=== PATIENT | female | born 1930 | race Caucasian/White ===

== ENCOUNTER 2017-05-07 10:13 | Emergency (ER) | payer MEDICARE ==
[~2017-05-07] VITALS: Ht 157.4 cm; Wt 57.6 kg
[~2017-05-07 10:13] MED LIST: DULCOLAX5 M1 PO; INDOCIN25 MG PO; MIRALAX17 GM PO
[2017-05-07] MEDS ORDERED: VALTREX1000 MG PO (10:21)
== END 2017-05-07 10:54 | disposition home or self-care (01) ==
LOC: ED 10:13
DX: B02.9 Zoster without complications (principal)

== ENCOUNTER 2017-10-21 09:16 | Emergency (ER) | payer MEDICARE ==
[~2017-10-21] VITALS: Ht 157.4 cm; Wt 58.1 kg
[~2017-10-21 09:16] MED LIST changes: +VALTREX1000 MG PO
[2017-10-21] MEDS ORDERED: NAPROSYN500 MG PO (09:46)
[2017-10-21] MEDS ORDERED: CYCLOBENZAPRINE5 M3 PO (09:46)
[2017-10-21] MEDS ORDERED: PREDNISONE10 MG PO (09:49)
[2017-10-21] MEDS ORDERED: NORCO 5-325 TA1 EACH PO (10:55)
== END 2017-10-21 11:23 | disposition home or self-care (01) ==
LOC: ED 09:16
DX: S32.030A Wedge compression fracture of third lumbar vertebra, initial encounter for closed fracture (principal); R03.0 Elevated blood-pressure reading, without diagnosis of hypertension; X58.XXXA Exposure to other specified factors, initial encounter; Y93.89 Activity, other specified; Y92.89 Other specified places as the place of occurrence of the external cause; Y99.8 Other external cause status

== ENCOUNTER → 2017-12-01 | Outpatient (CLI) | payer MEDICARE ==
[~2017-12-01] MED LIST changes: +CYCLOBENZAPRINE5 M3 PO; +NAPROSYN500 MG PO; +NORCO 5-325 TA1 EACH PO; +PREDNISONE10 MG PO
[2017-12-01 10:40] LABS: BUN 13 mg/dl (7-24); CHLORIDE 105 mmol/L (98-107); CREATININE 0.71 mg/dL (0.55-1.02); POTASSIUM 3.6 mmol/L (3.5-5.1); SODIUM 142 mmol/L (136-145)
== END | disposition home or self-care (01) ==
LOC: LAB 09:47
PROVIDERS: Internal Medicine
DX: I10 Essential (primary) hypertension (principal)

== ENCOUNTER → 2018-04-26 | Day surgery (SDC) | payer MEDICARE ==
[~2018-04-26] VITALS: Ht 157.4 cm; Wt 57.2 kg
[~2018-04-26] MED LIST changes: +VITAMIN D-32000 UNIT PO; +ZESTRIL10 MG PO
--- NOTE | ~2018-04-26 | O ---
[place], [place] OPERATIVE NOTE NAME: SAURABH LOMELI [facility] #: [id number] UNIT #: [id number] ROOM: DOCTOR: LINCOLN BRAY MD BIRTHDATE: [birth year] DOS: 04/26/2018 PREOPERATIVE DIAGNOSIS: Cataract, left eye. POSTOPERATIVE DIAGNOSIS: Cataract, left eye. OPERATION: Extracapsular cataract extraction by phacoemulsification with posterior chamber intraocular lens implantation, left eye. ANESTHESIA: Monitored standby. OPERATIVE FINDINGS AND PROCEDURE: 2% Xylocaine topical anesthetic gel was applied to the eye in the preop area. The patient was taken to the operating room and prepped and draped in the standard fashion for sterile intraocular surgery. A time out procedure was performed verifying correct patient, correct site and corrects lens with Aminta Bray M.D. The operating microscope was swung into position and the lid speculum was inserted. Using a Krys paracentesis blade, a paracentesis was made through clear cornea. Viscoelastic was used to fill the anterior chamber. Using a metal keratome a 2.4 mm self-sealing clear corneal cataract incision was made temporally at the limbus. Using a pre-bent 25 gauge cystotome needle, a standard continuous curvilinear capsulorrhexis was performed. The anterior capsule was removed with forceps. The lens nucleus was hydrodissected and phacoemulsified in the posterior chamber. Cortical material was removed with the irrigation aspiration hand piece and the posterior capsule was then polished with a curet under irrigation. The posterior chamber and capsular bag were filled with viscoelastic. A posterior chamber intraocular lens manufactured by: [employer], Model #[id number], and 19.0 diopters in strength were then inserted into the posterior chamber and within the capsular bag using the lens cartridge and injector system. Viscoelastic was removed using the irrigation aspiration handpiece. The anterior chamber was filled with balanced salt solution through the paracentesis. Both the paracentesis site and cataract incisions were hydrated with BSS and verified to be water-tight and self-sealing. Cefuroxime 1 mg/0.1 mL was injected into the anterior chamber through the paracentesis site. The incision checked to be water-tight using a Weck-Abi sponge. The integrity of the cataract wound and ocular tension were checked. Lid speculum and drapes were removed. The patient was transferred from the operating room to the recovery room in satisfactory condition. [place], [place] OPERATIVE NOTE NAME: SAURABH LOMELI UNIT #: [id number] ROOM: DOCTOR: LINCOLN BRAY MD BIRTHDATE: [birth year] LINCOLN BRAY MD CM:OPRECORD:OPERATIVE NOTE [id number] LINCOLN BRAY MD 04/26/18 1148 interface
[2018-04-26 10:30] VITALS: BP 162/73
[2018-04-26 11:35] VITALS: BP 122/75
[2018-04-26 11:49] VITALS: BP 137/73
[2018-04-26 11:59] VITALS: BP 140/65
== END | disposition home or self-care (01) ==
LOC: SDC 04-20 14:00
DX: H25.812 Combined forms of age-related cataract, left eye (principal); I10 Essential (primary) hypertension; K21.9 Gastro-esophageal reflux disease without esophagitis; Z79.899 Other long term (current) drug therapy

== ENCOUNTER → 2018-05-24 | Day surgery (SDC) | payer MEDICARE ==
[~2018-05-24] VITALS: Ht 157.4 cm; Wt 57.6 kg
--- NOTE | ~2018-05-24 | O ---
[place], [place] OPERATIVE NOTE [id number] UN[facility] #: [id number] ROOM: DOCTOR: LINCOLN BRAY MD BIRTHDATE: [birth year] DOS: 05/24/2018 PREOPERATIVE DIAGNOSIS: Cataract, right eye. POSTOPERATIVE DIAGNOSIS: Cataract, right eye. OPERATION: Extracapsular cataract extraction by phacoemulsification with posterior chamber intraocular lens implantation, right eye. ANESTHESIA: Monitored standby. OPERATIVE FINDINGS AND PROCEDURE: 2% Xylocaine topical anesthetic gel was applied to the eye in the preop area. The patient was taken to the operating room and prepped and draped in the standard fashion for sterile intraocular surgery. A time out procedure was performed verifying correct patient, correct site and corrects lens with Aminta Bray M.D. The operating microscope was swung into position and the lid speculum was inserted. Using a Krys paracentesis blade, a paracentesis was made through clear cornea. Viscoelastic was used to fill the anterior chamber. Using a metal keratome a 2.4 mm self-sealing clear corneal cataract incision was made temporally at the limbus. Using a pre-bent 25 gauge cystotome needle, a standard continuous curvilinear capsulorrhexis was performed. The anterior capsule was removed with forceps. The lens nucleus was hydrodissected and phacoemulsified in the posterior chamber. Cortical material was removed with the irrigation aspiration hand piece and the posterior capsule was then polished with a curet under irrigation. The posterior chamber and capsular bag were filled with viscoelastic. A posterior chamber intraocular lens manufactured by: [employer], Model #[id number], and 17.0 diopters in strength were then inserted into the posterior chamber and within the capsular bag using the lens cartridge and injector system. Viscoelastic was removed using the irrigation aspiration handpiece. The anterior chamber was filled with balanced salt solution through the paracentesis. Both the paracentesis site and cataract incisions were hydrated with BSS and verified to be water-tight and self-sealing. Cefuroxime 1 mg/0.1 mL was injected into the anterior chamber through the paracentesis site. The incision checked to be water-tight using a Weck-Abi sponge. The integrity of the cataract wound and ocular tension were checked. Lid speculum and drapes were removed. The patient was transferred from the operating room to the recovery room in satisfactory condition. [place], [place] OPERATIVE NOTE NAME: SAURABH LOMELI UNIT #: [id number] ROOM: DOCTOR: LINCOLN BRAY MD BIRTHDATE: [birth year] LINCOLN BRAY MD CM:OPRECORD:OPERATIVE NOTE [id number] LINCOLN BRAY MD 05/24/18 1137 interface
[2018-05-24 10:39] VITALS: BP 166/72
[2018-05-24 11:12] VITALS: BP 147/71
[2018-05-24 11:27] VITALS: BP 137/65
[2018-05-24 11:42] VITALS: BP 127/62
== END | disposition home or self-care (01) ==
LOC: SDC 05-18 02:32
DX: H25.811 Combined forms of age-related cataract, right eye (principal); I10 Essential (primary) hypertension; Z98.42 Cataract extraction status, left eye; Z79.899 Other long term (current) drug therapy

== ENCOUNTER → 2018-09-21 | Outpatient (CLI) | payer MEDICARE | END | disposition home or self-care (01) | DX: M79.605 Pain in left leg (principal); M79.604 Pain in right leg; M79.89 Other specified soft tissue disorders ==

== ENCOUNTER 2018-10-17 17:01 | Emergency (ER) | payer MEDICARE ==
[~2018-10-17] VITALS: Wt 58.1 kg
[2018-10-17 17:30] LABS: BASO % 0.2 % (0.0-1.0); EOS # 0.1 10*3/uL (0.0-0.4); EOS % 0.9 % (1.0-4.0); HEMATOCRIT 38.6 % (37.0-47.0); HEMOGLOBIN 12.5 g/dl (12.0-16.0); LYMPH # 1.3 10*3/uL (1.3-4.4); LYMPH % 19.3 % (27.0-41.0); MEAN CELL VOLUME 92.6 fl (81.0-99.0); MEAN CORPUSCULAR HGB CONC 32.4 g/dl (33.0-37.0); MEAN PLATELET VOLUME 9.1 fl (9.6-12.3); MONO # 0.6 10*3/uL (0.1-1.0); MONO % 8.8 % (3.0-9.0); NEUT # 4.7 10*3/uL (2.3-7.9); NEUT % 70.6 % (47.0-73.0); PLATELET COUNT AUTOMATED 285 10*3/uL (130-400); RED BLOOD COUNT 4.17 10*6/uL (4.10-5.10); RED CELL DISTRI WIDTH 11.5 % (0-14.5); WHITE BLOOD COUNT 6.6 10*3/uL (4.8-10.8)
[2018-10-17 17:44] LABS: BILIRUBIN NEGATIVE (NEGATIVE); BLOOD 2+ (NEGATIVE); CLARITY SL CLOUDY (CLEAR); COLOR YELLOW (YELLOW); GLUCOSE NEGATIVE (NEGATIVE); KETONE NEGATIVE (NEGATIVE); LEUKO ESTERASE TRACE (NEGATIVE); NITRITE NEGATIVE (NEGATIVE); PH 6.5 (5.0-9.0); UROBILINOGEN 0.2 E.U./dl (0.2-1.0)
[2018-10-17 17:46] LABS: ALBUMIN 3.3 gm/dl (3.1-4.5); ALKALINE PHOSPHATASE 169 U/L (45-117); BUN 9 mg/dl (7-24); CHLORIDE 103 mmol/L (98-107); CREATININE 0.62 mg/dL (0.55-1.02); LIPASE 86 U/L (73-393); POTASSIUM 3.1 mmol/L (3.5-5.1); SGOT/AST 13 IU/L (3-35); SGPT/ALT 18 U/L (12-78); SODIUM 141 mmol/L (136-145); TOTAL PROTEIN 7.7 gm/dL (6.4-8.2)
[2018-10-17 17:52] LABS: BACTERIA 2+; EPITHELIAL CELLS 0-2; MUCOUS TRACE
== END 2018-10-17 20:00 | disposition home or self-care (01) ==
LOC: ED 17:01
PROVIDERS: Nurse Practitioner Family
DX: K59.00 Constipation, unspecified (principal); Z79.899 Other long term (current) drug therapy